=== PATIENT | male | born 1950 | race Caucasian/White ===

== ENCOUNTER → 2017-05-02 | Outpatient (CLI) | payer MEDICARE ==
[2017-05-02 10:28] LABS: ABSOLUTE BASOPHILS # (AUTO) 0.1 10^3/uL (0.0-0.2); ABSOLUTE EOSINOPHILS # (AUTO) 0.3 10^3/uL (0.0-0.6); ABSOLUTE LYMPHOCYTES (AUTO) 1.7 10^3/uL (0.5-4.7); ABSOLUTE MONOCYTES (AUTO) 0.9 10^3/uL (0.1-1.4); BASOPHILS % (AUTO) 0.5 % (0-2); EOSINOPHILS % (AUTO) 2.6 % (0-6); HEMATOCRIT 46.5 % (37.9-51.0); HEMOGLOBIN 16.1 g/dL (13.5-17.0); LYMPHOCYTES % (AUTO) 15.6 % (13-45); MEAN CORPUSCULAR HEMOGLOBIN 31.7 pg (27.0-33.4); MEAN CORPUSCULAR HGB CONC 34.6 g/dL (32.0-36.0); MEAN CORPUSCULAR VOLUME 92 fl (80-97); MONOCYTES % (AUTO) 8.3 % (3-13); PLATELET COUNT 323 10^3/uL (150-450); RED BLOOD COUNT 5.07 10^6/uL (4.35-5.55); RED CELL DISTRIBUTION WIDTH 13.9 % (11.5-14.0); TOTAL CELLS COUNTED % (AUTO) 100 %
[2017-05-02 10:54] LABS: ALANINE AMINOTRANSFERASE 37 U/L (21-72); ALBUMIN 4.3 g/dL (3.5-5.0); ALKALINE PHOSPHATASE 69 U/L (38-126); ANION GAP 9 (5-19); ASPARTATE AMINO TRANSFERASE 31 U/L (17-59); BILIRUBIN,DIRECT 0.1 mg/dL (0.0-0.4); BILIRUBIN,TOTAL 0.7 mg/dL (0.2-1.3); BLOOD UREA NITROGEN 19 mg/dL (7-20); CALCIUM 9.5 mg/dL (8.4-10.2); CARBON DIOXIDE 27 mmol/L (22-30); CHLORIDE 105 mmol/L (98-107); CHOLESTEROL 148.16 mg/dL (0-200); GLUCOSE 98 mg/dL (75-110); POTASSIUM 4.8 mmol/L (3.6-5.0); TOTAL PROTEIN 6.9 g/dL (6.3-8.2); TRIGLYCERIDES 129 mg/dL (<150)
[2017-05-02 11:09] LABS: DIRECT LDL 79 mg/dL (<100)
[2017-05-02 11:14] LABS: FREE T4 (FREE THYROXINE) 0.99 ng/dL (0.78-2.19)
[2017-05-02 11:28] LABS: THYROID STIMULATING HORMONE 2.93 uIU/mL (0.47-4.68)
== END ==
LOC: OD 09:26
PROVIDERS: ATTEND Internal Medicine
DX: I10 Essential (primary) hypertension (principal); R53.83 Other fatigue; I25.10 Atherosclerotic heart disease of native coronary artery without angina pectoris; Z12.5 Encounter for screening for malignant neoplasm of prostate; E03.9 Hypothyroidism, unspecified; Z79.899 Other long term (current) drug therapy
CPT/HCPCS: 36415; 84439; 84443; 85025; 80053; 80061; G0103

== ENCOUNTER → 2018-02-17 | Outpatient (CLI) | payer MEDICARE ==
[2018-02-17 08:23] LABS: ABSOLUTE BASOPHILS # (AUTO) 0.1 10^3/uL (0.0-0.2); ABSOLUTE EOSINOPHILS # (AUTO) 0.4 10^3/uL (0.0-0.6); ABSOLUTE LYMPHOCYTES (AUTO) 1.7 10^3/uL (0.5-4.7); ABSOLUTE MONOCYTES (AUTO) 0.8 10^3/uL (0.1-1.4); ABSOLUTE NEUT (AUTO) 5.5 10^3/uL (1.7-8.2); BASOPHILS % (AUTO) 0.8 % (0-2); EOSINOPHILS % (AUTO) 4.8 % (0-6); HEMATOCRIT 44.9 % (37.9-51.0); HEMOGLOBIN 15.6 g/dL (13.5-17.0); LYMPHOCYTES % (AUTO) 20.5 % (13-45); MEAN CORPUSCULAR HEMOGLOBIN 32.9 pg (27.0-33.4); MEAN CORPUSCULAR HGB CONC 34.7 g/dL (32.0-36.0); MEAN CORPUSCULAR VOLUME 95 fl (80-97); MONOCYTES % (AUTO) 9.7 % (3-13); PLATELET COUNT 362 10^3/uL (150-450); RED BLOOD COUNT 4.74 10^6/uL (4.35-5.55); RED CELL DISTRIBUTION WIDTH 13.7 % (11.5-14.0); SEGMENTED NEUTROPHILS % (AUTO) 64.2 % (42-78); TOTAL CELLS COUNTED % (AUTO) 100 %; WHITE BLOOD COUNT 8.5 10^3/uL (4.0-10.5)
[2018-02-17 08:42] LABS: ALANINE AMINOTRANSFERASE 24 U/L (21-72); ALBUMIN 3.8 g/dL (3.5-5.0); ALKALINE PHOSPHATASE 59 U/L (38-126); ANION GAP 10 (5-19); ASPARTATE AMINO TRANSFERASE 31 U/L (17-59); BILIRUBIN,DIRECT 0.3 mg/dL (0.0-0.4); BILIRUBIN,TOTAL 0.8 mg/dL (0.2-1.3); BLOOD UREA NITROGEN 16 mg/dL (7-20); CARBON DIOXIDE 29 mmol/L (22-30); CHLORIDE 104 mmol/L (98-107); CHOLESTEROL 112.04 mg/dL (0-200); GLUCOSE 92 mg/dL (75-110); POTASSIUM 4.6 mmol/L (3.6-5.0); SODIUM 142.8 mmol/L (137-145); TOTAL PROTEIN 6.4 g/dL (6.3-8.2); TRIGLYCERIDES 75 mg/dL (<150)
[2018-02-17 08:53] LABS: DIRECT LDL 62 mg/dL (<100)
[2018-02-17 08:58] LABS: FREE T4 (FREE THYROXINE) 1.22 ng/dL (0.78-2.19)
[2018-02-17 09:12] LABS: THYROID STIMULATING HORMONE 3.27 uIU/mL (0.47-4.68)
== END ==
LOC: OD 07:23
PROVIDERS: ATTEND Internal Medicine
DX: E03.9 Hypothyroidism, unspecified (principal); I25.119 Atherosclerotic heart disease of native coronary artery with unspecified angina pectoris; I10 Essential (primary) hypertension; I70.219 Atherosclerosis of native arteries of extremities with intermittent claudication, unspecified extremity; R35.0 Frequency of micturition; R39.15 Urgency of urination; Z79.899 Other long term (current) drug therapy
CPT/HCPCS: 36415; 80053; 80061; 84153; 84439; 84443; 85025

== ENCOUNTER 2019-01-16 07:28 | Day surgery (SDC) | payer MEDICARE ==
--- NOTE | 2019-01-09 10:15 | RADIOLOGY REPORT (SQ) ---
EXAM DESCRIPTION: CHEST PA/LATERAL COMPLETED DATE/TIME: 01/09/2019 10:07 am REASON FOR STUDY: PRE-OP COMPARISON: 02/13/2016 EXAM PARAMETERS: NUMBER OF VIEWS: two views TECHNIQUE: Digital Frontal and Lateral radiographic views of the chest acquired. RADIATION DOSE: NA LIMITATIONS: none FINDINGS: LUNGS AND PLEURA: No opacities, masses or pneumothorax. No pleural effusion. MEDIASTINUM AND HILAR STRUCTURES: No masses or contour abnormalities. HEART AND VASCULAR STRUCTURES: Heart normal size. No evidence for failure. BONES: No acute findings. HARDWARE: None in the chest. OTHER: No other significant finding. IMPRESSION: NO SIGNIFICANT RADIOGRAPHIC FINDING IN THE CHEST. TECHNICAL DOCUMENTATION: JOB ID: [id number] [employer]- All Rights Reserved Reading location - IP/workstation name: [email or web address]
[2019-01-09 10:20] LABS: HEMATOCRIT 42.6 % (37.9-51.0); HEMOGLOBIN 14.4 g/dL (13.5-17.0); MEAN CORPUSCULAR HEMOGLOBIN 32.5 pg (27.0-33.4); MEAN CORPUSCULAR HGB CONC 33.9 g/dL (32.0-36.0); MEAN CORPUSCULAR VOLUME 96 fl (80-97); PLATELET COUNT 353 10^3/uL (150-450); RED BLOOD COUNT 4.44 10^6/uL (4.35-5.55); RED CELL DISTRIBUTION WIDTH 13.7 % (11.5-14.0); WHITE BLOOD COUNT 8.5 10^3/uL (4.0-10.5)
[2019-01-09 10:46] LABS: ANION GAP 5 (5-19); BLOOD UREA NITROGEN 12 mg/dL (7-20); CARBON DIOXIDE 31 mmol/L (22-30); CHLORIDE 103 mmol/L (98-107); GLUCOSE 101 mg/dL (75-110); POTASSIUM 4.4 mmol/L (3.6-5.0)
--- NOTE | 2019-01-09 21:21 | EKG REPORT ---
SEVERITY:- ABNORMAL ECG - SINUS BRADYCARDIA ATRIAL PREMATURE COMPLEX NONSPECIFIC T ABNORMALITIES, LATERAL LEADS : Confirmed by: Mg Eden MD 09-Jan-2019 21:20:46
[~2019-01-16 07:28] MED LIST: ACETAMINOPHEN 325 MG TABLET PO PRN; CEFAZOLIN SODIUM 2 GM in DEXTROSE 5%-WATER 100 ML IV PRN; IBUPROFEN 800 MG in NORMAL SALINE 250 ML IV PRN; LACTATED RINGERS 1000 ML IV PRN; LIDOCAINE 0.5% INJ-PF (5 MG/ML) 50 ML SDV SUBCUT PRN
[2019-01-16] MEDS ORDERED: BUPIVACAINE HCL 0.25 % INJ/PF (2.5 MG/1 ML) 30 ML VIAL ONE (08:01)
[2019-01-16] MEDS ORDERED: ACETAMINOPHEN 325 MG TABLET ONE (08:29)
[2019-01-16 08:54] LABS: HEMATOCRIT 40.7 % (37.9-51.0); HEMOGLOBIN 13.7 g/dL (13.5-17.0); MEAN CORPUSCULAR HEMOGLOBIN 32.4 pg (27.0-33.4); MEAN CORPUSCULAR HGB CONC 33.6 g/dL (32.0-36.0); MEAN CORPUSCULAR VOLUME 96 fl (80-97); PLATELET COUNT 297 10^3/uL (150-450); RED BLOOD COUNT 4.22 10^6/uL (4.35-5.55); RED CELL DISTRIBUTION WIDTH 13.8 % (11.5-14.0); WHITE BLOOD COUNT 11.7 10^3/uL (4.0-10.5)
[2019-01-16 08:57] LABS: INTERNATIONAL RATION (INR) 1.05; PROTHROMBIN TIME 13.7 SEC (11.4-15.4)
[2019-01-16 08:58] LABS: PARTIAL THROMBOPLASTIN TIME 32.6 SEC (23.5-35.8)
[2019-01-16] MEDS ORDERED: FENTANYL CITRATE INJ/PF 100 MCG/2 ML AMPUL ONE (09:58)
[2019-01-16] MEDS ORDERED: HYDROMORPHONE HCL INJ/PF 2 MG/ML AMPULE ONE (09:58)
[2019-01-16] MEDS ORDERED: MIDAZOLAM 2 MG/2 ML INJ ONE (09:58)
[2019-01-16] MEDS ORDERED: PROPOFOL INJ 200 MG/20 ML VIAL IV ONE (09:59)
[2019-01-16] MEDS ORDERED: DEXAMETHASONE SOD PHOSPHATE INJ 4 MG/1 ML VIAL ONE (10:22)
[2019-01-16] MEDS ORDERED: SUCCINYLCHOLINE CHLORIDE INJ 200 MG/10 ML VIAL ONE (10:22)
[2019-01-16] MEDS ORDERED: VECURONIUM BROMIDE INJ 10 MG VIAL IV ONE (10:22)
[2019-01-16] MEDS ORDERED: ONDANSETRON HCL INJ/PF 4 MG/2 ML SDV ONE (10:22)
[2019-01-16] MEDS ORDERED: LIDOCAINE 2% INJ-PF (20 MG/ML) 2 ML AMPUL ONE (10:22)
[2019-01-16] MEDS: FENTANYL CITRATE INJ/PF 100 MCG/2 ML AMPUL ONE ×2 (13:13→13:22)
[2019-01-16] MEDS ORDERED: HYDROCODONE/ACETAMINOPHEN 10-325 MG TABLET PO PRN (13:24)
[2019-01-16] MEDS ORDERED: PROMETHAZINE HCL INJ 25 MG/1 ML VIAL IV PRN ×2 (13:43)
[2019-01-16] MEDS ORDERED: MEPERIDINE HCL/PF INJ 25 MG/1 ML DISP.SYRIN IV PRN (13:43)
[2019-01-16] MEDS ORDERED: OXYCODONE-ACETAMINOPHEN 5-325 MG TABLET PO PRN ×2 (13:43)
[2019-01-16] MEDS ORDERED: DIPHENHYDRAMINE HCL 50 MG/ML VIAL IV PRN (13:43)
[2019-01-16] MEDS ORDERED: FENTANYL CITRATE INJ/PF 100 MCG/2 ML AMPUL IV PRN ×3 (13:43)
--- NOTE | 2019-01-16 14:37 | Discharge Summary ---
Discharge Summary (SDC) - Discharge Final Diagnosis: Symptomatic bilateral inguinal hernias. Date of Surgery: 01/16/19 Discharge Date: 01/16/19 Condition: Stable Treatment or Instructions: Discharge home. Diet as tolerated. Activity: No lifting greater than 10 pounds x 4 weeks. Follow-up with me in 7 to 10 days. [place] 10/50 to 5 mg p.o. every 6 hours as needed for pain. 800 mg ibuprofen p.o. 3 times daily with meals. Okay to shower starting on Saturday. Referrals: SHAYNE SHINE MD [Primary Care Provider] - Discharge Diet: As Tolerated Respiratory Treatments at Home: Deep Breathing/Coughing, Incentive Spirometer Discharge Activity: No Lifting Over 10 Pounds Home Care Assistance: None Needed Report the Following to Your Physician Immediately: Shortness of Breath, Nausea, Vomiting, Increase in Pain, Fever over 101 Degrees, Unusual Bleeding, Drainage- Yellow, Drainage-Rodriguez, Drainage-Green, Drainage-Foul Smelling
--- NOTE | 2019-01-16 14:48 | Operative Report ---
Nonrecallable Operative Report DATE OF SURGERY: 01/16/19 PREOPERATIVE DIAGNOSIS: Bilateral symptomatic inguinal hernias. POSTOPERATIVE DIAGNOSIS: Bilateral indirect symptomatic inguinal hernias. OPERATION: Bilateral robot-assisted laparoscopic inguinal hernia repair with mesh. SURGEON: CHERRIE ORTIZ 1ST TRIMMING MACHINE SET UP OPERATOR: YANE RUIZ ANESTHESIA: GA TISSUE REMOVED OR ALTERED: None COMPLICATIONS: None apparent ESTIMATED BLOOD LOSS: Minimal PROCEDURE: Procedure in detail: After informed consent was obtained, the patient was brought to the operating room and laid in the supine position. The area of the abdomen was prepped and draped in a normal sterile fashion. A 15 blade scalpel was used to create a supraumbilical incision. This was deepened through the use of sharp and blunt dissection. The linea alba fascia was incised sharply, and the abdomen was entered sharply. The balloon trocar was inserted, and pneumoperitoneum was achieved. 2 right and left lateral abdominal wall trochars were then placed under direct laparoscopic visualization. These were 8 mm robotic trochars. The robot was then brought over the patient and docked appropriately. Attention was then turned to the right groin. An incision was created in the peritoneum approximately 3 cm superior to the indirect inguinal hernia defect. A preperitoneal dissection was then undertaken using sharp dissection, blunt dissection, and electrocautery. The hernia sac was freed from the cord structures, taking great care not to injure the cord structures. The femoral space was examined, and found to be free of any defect. There was no direct component. Attention was then turned to the freeing of the left groin. In similar fashion, the peritoneum was scored 3 cm superior to the indirect left inguinal hernia defect. A preperitoneal dissection was then undertaken. The hernia sac on the left was much larger. The hernia sac was freed from the cord structures, taking great care not to injure the cord structures. The femoral space was inspected and found to be free of any hernia defect. Once this was completed, a large 3 DMax inguinal hernia mesh was placed into the preperitoneal space on the left. It was sutured to Damien's ligament, medially, and superiorly using 2-0 Vicryl suture in simple interrupted fashion. Once this was completed, the peritoneum was closed using 2-0 V Lock Suture. The hernia sac was everted and incorporated into the closure. Attention was then turned to placement of the right-sided mesh. A right-sided 3 DMax inguinal hernia mesh was placed into the preperitoneal space. It was sutured medially and superiorly (including Damien's ligament) using 2-0 Vicryl suture. Once the mesh was found to lie in good place, the peritoneum was closed using 2-0 V Lock Suture in simple running fashion. After this was completed, the repairs were inspected. They were found to be in good order. The robot was undocked. I scrubbed back into the case. The 8 mm trochars were removed. The 8 mm robotic defects were closed using 0 Vicryl suture in simple interrupted fashion with the aid of the SeanPathJump device. The 12 mm trocar was removed and pneumoperitoneum was relieved. The supraumbilical fascia was closed using 0 Vicryl suture in [id number] fashion. The overlying skin was closed using 4-0 Vicryl Rapide suture in subcuticular fashion. Dressings were placed, and the procedure was concluded. All sponge, instrument, and needle counts were correct x2. Condition: Stable. Implants: Right and left 3 DMax inguinal hernia mesh. Large in size. Yane Ruiz PA-C was scrubbed and present the entirety of the procedure. She assisted with all portions of the procedure including placement of the trochars, docking of the robot, insertion of the mesh, exchanging of the robotic instruments, closure of the fascia, and closure of the skin.
[2019-01-16 15:04] VITALS: BP 132/89
[2019-01-16] MEDS ORDERED: IBUPROFEN 800 MG TABLET PO SCH (17:00)
--- NOTE | 2019-01-18 00:27 | EKG REPORT ---
SEVERITY:- BORDERLINE ECG - SINUS BRADYCARDIA BORDERLINE T WAVE ABNORMALITIES : Confirmed by: Claudio Contreras 18-Jan-2019 00:26:58
== END 2019-01-16 15:00 | disposition home or self-care (01) ==
LOC: OROUT 07:28
PROVIDERS: ATTEND Surgery
DX: K40.20 Bilateral inguinal hernia, without obstruction or gangrene, not specified as recurrent (principal); F17.210 Nicotine dependence, cigarettes, uncomplicated; I25.10 Atherosclerotic heart disease of native coronary artery without angina pectoris; E07.9 Disorder of thyroid, unspecified; Z79.82 Long term (current) use of aspirin; Z79.899 Other long term (current) drug therapy; Z79.01 Long term (current) use of anticoagulants
CPT/HCPCS: 49650; S2900; 36415; 71046; 80048; 840; 85027; 85610; 85730; 86850; 86900; 86901; 93005; 93010; C1781; J0330; J0690; J1100; J1170; J1741; J2250; J2405; J2704; J3010; J3490; J7050; J7060

== ENCOUNTER → 2019-02-20 | Outpatient (CLI) | payer MEDICARE ==
[2019-02-20 08:48] LABS: ABSOLUTE EOSINOPHILS # (AUTO) 0.4 10^3/uL (0.0-0.6); ABSOLUTE LYMPHOCYTES (AUTO) 1.8 10^3/uL (0.5-4.7); ABSOLUTE NEUT (AUTO) 7.2 10^3/uL (1.7-8.2); BASOPHILS % (AUTO) 0.5 % (0-2); EOSINOPHILS % (AUTO) 4.1 % (0-6); HEMATOCRIT 43.6 % (37.9-51.0); HEMOGLOBIN 15.1 g/dL (13.5-17.0); MEAN CORPUSCULAR HEMOGLOBIN 33.3 pg (27.0-33.4); MEAN CORPUSCULAR HGB CONC 34.8 g/dL (32.0-36.0); MEAN CORPUSCULAR VOLUME 96 fl (80-97); MONOCYTES % (AUTO) 9.1 % (3-13); PLATELET COUNT 339 10^3/uL (150-450); RED BLOOD COUNT 4.55 10^6/uL (4.35-5.55); RED CELL DISTRIBUTION WIDTH 13.3 % (11.5-14.0); SEGMENTED NEUTROPHILS % (AUTO) 69.3 % (42-78); TOTAL CELLS COUNTED % (AUTO) 100 %; WHITE BLOOD COUNT 10.5 10^3/uL (4.0-10.5)
[2019-02-20 09:17] LABS: ALBUMIN 4.1 g/dL (3.5-5.0); ALKALINE PHOSPHATASE 59 U/L (38-126); ANION GAP 10 (5-19); ASPARTATE AMINO TRANSFERASE 34 U/L (17-59); BILIRUBIN,DIRECT 0.2 mg/dL (0.0-0.4); BILIRUBIN,TOTAL 0.7 mg/dL (0.2-1.3); BLOOD UREA NITROGEN 10 mg/dL (7-20); CALCIUM 9.5 mg/dL (8.4-10.2); CARBON DIOXIDE 29 mmol/L (22-30); CHLORIDE 105 mmol/L (98-107); CHOLESTEROL 122.24 mg/dL (0-200); GLUCOSE 85 mg/dL (75-110); POTASSIUM 4.7 mmol/L (3.6-5.0); TRIGLYCERIDES 107 mg/dL (<150)
[2019-02-20 09:34] LABS: DIRECT LDL 55 mg/dL (<100)
== END ==
LOC: OD 07:03
PROVIDERS: ATTEND Internal Medicine
DX: I73.9 Peripheral vascular disease, unspecified (principal); E70.9 Disorder of aromatic amino-acid metabolism, unspecified; F32.9 Major depressive disorder, single episode, unspecified; R35.0 Frequency of micturition; Z79.899 Other long term (current) drug therapy
CPT/HCPCS: 36415; 80053; 80061; 84153; 85025